=== PATIENT | female | born 1995 | race African-American/Black ===

== ENCOUNTER 2017-04-04 12:38 | Observation (INO) | payer BC ==
[~2017-04-04] VITALS: Ht 160 cm; Wt 77.1 kg
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
[2017-04-04 16:28] LABS: FETAL BLEED VOL 0 mL
== END 2017-04-04 17:30 | disposition home or self-care (01) ==
LOC: 3 SO LND 12:38
PROVIDERS: ADMIT Specialist; ATTEND Specialist
DX: Z04.1 Encounter for examination and observation following transport accident (principal); V49.88XA Car occupant (driver) (passenger) injured in other specified transport accidents, initial encounter; Y93.89 Activity, other specified; Y92.89 Other specified places as the place of occurrence of the external cause; Y99.8 Other external cause status; Z3A.29 29 weeks gestation of pregnancy
CPT/HCPCS: 36415; 76805; 85460; G0378; G0379

== ENCOUNTER 2018-11-23 08:56 | Emergency (ER) | payer BC ==
[~2018-11-23] VITALS: Ht 160 cm; Wt 77.1 kg
[2018-11-23 10:27] VITALS: BP 114/74
[2018-11-23 10:52] LABS: BILIRUBIN,URINE NEGATIVE (NEG); CLARITY,URINE CLEAR; COLOR,URINE YELLOW; NITRITE,URINE NEGATIVE (NEG); PROTEIN,URINE NEGATIVE (NEG-TRACE)
[2018-11-23 10:56] LABS: BACTERIA,URINE FEW /HPF (0-FEW); RBC,URINE 0 /HPF (0-2); SQUAMOUS EPITHELIAL CELL,UR MOD /LPF
[2018-11-23 11:05] LABS: BASO % 1 % (0-3); EOS # 0.1 x10^3/uL (0.0-0.7); EOS % 2 % (0-3); HEMOGLOBIN 13.6 g/dL (12.0-15.5); LYMPH # 1.7 x10^3/uL (1.0-4.8); LYMPH % 38 % (24-48); MEAN CORPUSCULAR HEMOGLOBIN 32 pg (25-35); MEAN CORPUSCULAR HGB CONC 35 g/dL (31-37); MEAN CORPUSCULAR VOLUME 91 fL (79-100); MONO # 0.3 x10^3/uL (0.0-1.1); MONO % 7 % (0-9); NEUT # 2.4 x10^3/uL (1.8-7.7); NEUT % 52 % (31-73); PLATELET COUNT 229 x10^3/uL (140-400); RED BLOOD COUNT 4.27 x10^6/uL (3.50-5.40); WHITE BLOOD COUNT 4.5 x10^3/uL (4.0-11.0)
[2018-11-23 11:23] LABS: CALCIUM 8.9 mg/dL (8.5-10.1); CREATININE 0.7 mg/dL (0.6-1.0); GFR 124.4; POTASSIUM 3.7 mmol/L (3.5-5.1)
[2018-11-23 11:30] LABS: ALBUMIN 3.8 g/dL (3.4-5.0); ALBUMIN/GLOBULIN RATIO 0.9 (1.0-1.7); TOTAL BILIRUBIN 0.2 mg/dL (0.2-1.0)
--- NOTE | 2018-11-23 12:02 | RAD ---
EXAM: Obstetrics sonogram. HISTORY: Pain. TECHNIQUE: Sonographic imaging of the pelvis was performed. COMPARISON: None. FINDINGS: The uterus measures 11.4 x 7.7 x 7.8 cm. There is an intrauterine fetus with a crown-rump length of 5.08 cm, corresponding with a gestational age of 11 weeks and 6 days. There is a normal heart rate of 150 bpm. The gestational sac is normal in configuration and location. The estimated due date based on ultrasound measurements is 06/08/2019. The ovaries are normal in size and demonstrate normal blood flow. There is a 2.3 cm suspected right corpus luteum cyst. There is no pelvic free fluid. IMPRESSION: 1. Intrauterine fetus with an estimated gestational age of 11 weeks and 6 days and heart rate of 150 bpm. 2. Suspected 2.3 cm right corpus luteum cyst. Electronically signed by: Nikki Valdes MD (11/23/2018 11:59 AM) [id number]
--- NOTE | 2018-11-23 12:39 | PHYS DOC ---
Past Medical History Past Medical History: No Pertinent History Past Surgical History: No Surgical History Alcohol Use: Occasionally Drug Use: None Adult General Chief Complaint Chief Complaint: ABDOMINAL PAIN IN HPI HPI Patient is a 23 year old female 32 currently 10 weeks presents to the ED today complaining of 7 out of 10 right lower quadrant abdominal pain that began this morning. Patient denies any nausea, vomiting, vaginal bleeding. Denies anything specifically exacerbating or relieving the pain. Unable to describe the pain states, she has not seen her OB since she found out she is . She is also requesting a note for work for today. Denies any concerns for STDs. Review of Systems Review of Systems Constitutional: Denies fever or chills [] Eyes: Denies change in visual acuity, redness, or eye pain [] HENT: Denies nasal congestion or sore throat [] Respiratory: Denies cough or shortness of breath [] Cardiovascular: No additional information not addressed in HPI [] GI: Reports right low quadrant abdominal pain, denies nausea, vomiting, bloody stools or diarrhea [] : Denies dysuria or hematuria [] Musculoskeletal: Denies back pain or joint pain [] Integument: Denies rash or skin lesions [] Neurologic: Denies headache, focal weakness or sensory changes [] All other systems were reviewed and found to be within normal limits, except as documented in this note. Allergies Allergies Allergies Coded Allergies Type Severity Reaction Last Updated Verified No Known Drug Allergies 04/04/17 No Physical Exam Physical Exam Constitutional: Well developed, well nourished, no acute distress, non-toxic appearance. [] HENT: Normocephalic, atraumatic, bilateral external ears normal, oropharynx moist, no oral exudates, nose normal. [] Eyes: PERRLA, EOMI, conjunctiva normal, no discharge. [] Neck: Normal range of motion, no tenderness, supple, no stridor. [] Cardiovascular:Heart rate regular rhythm, no murmur [] Lungs & Thorax: Bilateral breath sounds clear to auscultation [] Abdomen: Bowel sounds normal, soft, no tenderness, negative psoas sign, negative obturator sign, negative Rovsing sign, no masses, no pulsatile masses. Pelvic exam External pelvic appears normal, cervix is visualized, closed, no CMT, no adnexal tenderness. Trace amount of white discharge in the vaginal vault. Skin: Warm, dry, no erythema, no rash. [] Back: No tenderness, no CVA tenderness. [] Extremities: No tenderness, no cyanosis, no clubbing, ROM intact, no edema. [] Neurologic: Alert and oriented X 3, normal motor function, normal sensory function, no focal deficits noted. [] Psychologic: Affect normal, judgement normal, mood normal. [] Current Patient Data Vital Signs Vital Signs Date Time Temp Pulse Resp B/P (MAP) Pulse Ox O2 Delivery O2 Flow Rate FiO2 11/23/18 10:27 98.6 79 16 114/74 (87) 99 Room Air 98.6 Lab Values Laboratory Tests Test 11/23/18 10:30 11/23/18 10:41 11/23/18 10:55 Urine Collection Type Unknown Urine Color Yellow Urine Clarity Clear Urine pH 6.0 Urine Specific [place] 1.025 Urine Protein Negative mg/dL (NEG-TRACE) Urine Glucose (UA) Negative mg/dL (NEG) Urine Ketones (Stick) Negative mg/dL (NEG) Urine Blood Negative (NEG) Urine Nitrite Negative (NEG) Urine Bilirubin Negative (NEG) Urine Urobilinogen Dipstick 1.0 mg/dL (0.2 mg/dL) Urine Leukocyte Esterase Negative (NEG) Urine RBC 0 /HPF (0-2) Urine WBC 1-4 /HPF (0-4) Urine Squamous Epithelial Cells Mod /LPF Urine Bacteria Few /HPF (0-FEW) Urine Mucus Marked /LPF POC Urine HCG, Qualitative Hcg positive (Negative) White Blood Count 4.5 x10^3/uL (4.0-11.0) Red Blood Count 4.27 x10^6/uL (3.50-5.40) Hemoglobin 13.6 g/dL (12.0-15.5) Hematocrit 39.0 % (36.0-47.0) Mean Corpuscular Volume 91 fL (79-100) Mean Corpuscular Hemoglobin 32 pg (25-35) Mean Corpuscular Hemoglobin Concent 35 g/dL (31-37) Red Cell Distribution Width 13.0 % (11.5-14.5) Platelet Count 229 x10^3/uL (140-400) Neutrophils (%) (Auto) 52 % (31-73) Lymphocytes (%) (Auto) 38 % (24-48) Monocytes (%) (Auto) 7 % (0-9) Eosinophils (%) (Auto) 2 % (0-3) Basophils (%) (Auto) 1 % (0-3) Neutrophils # (Auto) 2.4 x10^3/uL (1.8-7.7) Lymphocytes # (Auto) 1.7 x10^3/uL (1.0-4.8) Monocytes # (Auto) 0.3 x10^3/uL (0.0-1.1) Eosinophils # (Auto) 0.1 x10^3/uL (0.0-0.7) Basophils # (Auto) 0.0 x10^3/uL (0.0-0.2) Maternal Serum HCG Beta Subunit 61735 mIU/mL (0-5) H Sodium Level 140 mmol/L (136-145) Potassium Level 3.7 mmol/L (3.5-5.1) Chloride Level 103 mmol/L (98-107) Carbon Dioxide Level 23 mmol/L (21-32) Anion Gap 14 (6-14) Blood Urea Nitrogen 6 mg/dL (7-20) L Creatinine 0.7 mg/dL (0.6-1.0) Estimated GFR (Cockcroft-Gault) 124.4 BUN/Creatinine Ratio 9 (6-20) Glucose Level 77 mg/dL (70-99) Calcium Level 8.9 mg/dL (8.5-10.1) Total Bilirubin 0.2 mg/dL (0.2-1.0) Aspartate Amino Transferase (AST) 14 U/L (15-37) L Alanine Aminotransferase (ALT) 13 U/L (14-59) L Alkaline Phosphatase 53 U/L (46-116) Total Protein 8.0 g/dL (6.4-8.2) Albumin 3.8 g/dL (3.4-5.0) Albumin/Globulin Ratio 0.9 (1.0-1.7) L Laboratory Tests 11/23/18 10:55 Laboratory Tests 11/23/18 10:55 Microbiology 11/23/18 Wet Prep - Final, Complete EKG EKG [] Radiology/Procedures Radiology/Procedures []PROCEDURE: OB < 14 WKS EXAM: Obstetrics sonogram. HISTORY: Pain. TECHNIQUE: Sonographic imaging of the pelvis was performed. COMPARISON: None. FINDINGS: The uterus measures 11.4 x 7.7 x 7.8 cm. There is an intrauterine fetus with a crown-rump length of 5.08 cm, corresponding with a gestational age of 11 weeks and 6 days. There is a normal heart rate of 150 bpm. The gestational sac is normal in configuration and location. The estimated due date based on ultrasound measurements is 06/08/2019. The ovaries are normal in size and demonstrate normal blood flow. There is a 2.3 cm suspected right corpus luteum cyst. There is no pelvic free fluid. IMPRESSION: 1. Intrauterine fetus with an estimated gestational age of 11 weeks and 6 days and heart rate of 150 bpm. 2. Suspected 2.3 cm right corpus luteum cyst. Electronically signed by: Nikki Valdes MD (11/23/2018 11:59 AM) [facility] DICTATED and SIGNED BY: NIKKI VALDES MD DATE: 11/23/18 1150 Course & Med Decision Making Course & Med Decision Making Pertinent Labs and Imaging studies reviewed. (See chart for details) This is a 23-year-old female patient 3 para 2 currently 10 weeks pregna nt per her statement presenting today requesting a note for work as well as complaining of right lower quadrant abdominal pain. No tenderness to the right lower quadrant on exam. CBC with a normal WBC, normal hemoglobin and hematocrit, CMP-no acute findings, beta-hCG 47,510. OB ultrasound noted for- Intrauterine fetus with an estimated gestational age of 11 weeks and 6 days and heart rate of 150 bpm. Suspected 2.3 cm right corpus luteum cyst. Patient is in no distress. She continues to have no tenderness of the right lower quadrant. Urine analysis is negative for infection, wet prep shows altered [place] consistent with Bv but no Clue cells hence not tx needed. Patient was provided a note for work. She was provided return precautions and discharged to home. Follow-up with her [facility] in the next 1-3 days. Dragon Disclaimer Dragon Disclaimer This electronic medical record was generated, in whole or in part, using a voice recognition dictation system. Departure Departure Impression: Primary Impression: Abdominal pain in Disposition: HOME, SELF-CARE (THAT) Condition: STABLE Referrals: UNKNOWN PCP NAME (PCP) HECTOR COMBS MD Please call your [facility] and follow-up as soon as possible Patient Instructions: Abdominal Pain During Additional Instructions: You were evaluated for abdominal pain in . You are 11 weeks 6 days p regnant. You can take Tylenol as needed for pain. Please follow-up with your [facility] in the next 1-3 days. Problem Qualifiers Primary Impression: Abdominal pain in Trimester: first trimester Qualified Codes: O26.891 - Other specified related conditions, first trimester; R10.9 - Unspecified abdominal pain DACIA HERNANDEZ [employer] Nov 23, 2018 12:39
[2018-11-24 18:14] LABS: GC PROBE Negative (Negative)
== END 2018-11-23 12:56 | disposition home or self-care (01) ==
LOC: ER 08:56
DX: O26.891 Other specified pregnancy related conditions, first trimester (principal); R10.31 Right lower quadrant pain; Z3A.11 11 weeks gestation of pregnancy
CPT/HCPCS: 36415; 76801; 80053; 81001; 81025; 84702; 85025; 87491; 87591; 99285; Q0111